=== PATIENT | female | born 1935 | race African-American/Black ===

== ENCOUNTER 2017-04-03 12:55 | Inpatient (IN) | payer MEDICARE, BC ==
[~2017-04-03] VITALS: Ht 170.2 cm; Wt 60.3 kg
[~2017-04-03 12:55] MED LIST: AMLO10TA4 PO; ATOR10TA PO; CALCIUM VIT D PO; CLOP75TA16 PO; DOXA4TAB2 PO; HYDR-4135 PO; INSU100C6 SQ; INSU3INS6 SQ; MIRT15TA PO; MULT-783 PO; VITA1CAP PO; [UNRECOGNIZED DRUG - CODE] PO
[2017-04-03 18:00] VITALS: BP 189/58
[2017-04-03 20:00] VITALS: BP 184/45
[2017-04-03 21:19] LABS: HEMATOCRIT. 30.9 % (36.0-48.0); HEMOGLOBIN. 10.1 g/dL (12.0-16.0); MEAN CORPUSCULAR HEMOGLOBIN 27.4 pg (28.0-32.0); MEAN CORPUSCULAR VOLUME 84.1 fL (81.0-99.0); MEAN PLATELET VOLUME 11.4 fl (7.4-10.4); RED BLOOD CELL COUNT 3.67 mill/uL (4.2-5.4); RED CELL DISTRIBUTION WIDTH 15.5 % (11.6-14.6)
[2017-04-03 21:28] LABS: PLATELET 31 x1000/uL (130-400)
[2017-04-03] MEDS ORDERED: DEXTROSE 50% WATER 50ML SYRINGE IV PRN ×2 (22:30→23:23)
[2017-04-03 23:10] LABS: PLATELET ESTIMATE MARKEDLY DECREASED
[2017-04-03] MEDS ORDERED: ACETAMINOPHEN 650MG/20.3ML UDC PO PRN (23:23)
[2017-04-03] MEDS ORDERED: DEXT 5%/0.45% NACL 1000ML 1,000 ML IV SCH (23:24)
[2017-04-03] MEDS: TEMAZEPAM 15MG CAPSULE PO PRN ×2 (23:33→23:34)
[2017-04-03] MEDS: MIRTAZAPINE 15MG TABLET PO SCH (23:34)
[2017-04-03] MEDS: CARVEDILOL 12.5MG TABLET PO SCH (23:34)
[2017-04-03] MEDS: ATORVASTATIN CALCIUM 10MG TABLET PO SCH (23:34)
[2017-04-03] MEDS: BLOOD SUGAR DIAGNOSTIC STRIP TEST SCH (23:38)
[2017-04-03] MEDS ORDERED: DEXT 5%/0.45% NACL 500ML 1,000 ML IV ONE (23:45)
[2017-04-03] MEDS: HYDRALAZINE HCL 50MG TABLET PO SCH (23:50)
[2017-04-04 00:52] LABS: CLARITY URINE CLEAR (CLEAR); COLOR URINE YELLOW (YELLOW); GLUCOSE URINE TRACE (NEGATIVE); KETONES URINE NEGATIVE (NEGATIVE); LEUKOCYTE ESTERASE URINE TRACE (NEGATIVE); NITRITE URINE NEGATIVE (NEGATIVE); OCCULT BLOOD URINE TRACE (NEGATIVE); PH URINE >=9.0 (4.5-8.0); PROTEIN URINE 2+ (NEGATIVE); SPECIFIC GRAVITY URINE 1.006 (1.005-1.030); UROBILINOGEN URINE 0.2 E.U./dL (0.2-1.0)
[2017-04-04 04:00] VITALS: BP 164/42
[2017-04-04] MEDS ORDERED: DEXT 5%/0.45% NACL 1000ML 1,000 ML IV SCH (05:15)
[2017-04-04] MEDS: BLOOD SUGAR DIAGNOSTIC STRIP TEST SCH ×4 (07:05→20:50)
[2017-04-04] MEDS: INSULIN LISPRO 100 UNITS/ML SUBCUT SCH ×4 (07:50→21:07)
[2017-04-04 08:00] VITALS: BP 188/54
[2017-04-04] MEDS: AMLODIPINE 10MG TABLET PO SCH (09:00)
[2017-04-04] MEDS: DOXAZOSIN MESYLATE 4MG TABLET PO SCH (09:00)
[2017-04-04] MEDS: CARVEDILOL 12.5MG TABLET PO SCH ×3 (09:00→23:58)
[2017-04-04] MEDS ORDERED: CLOPIDOGREL 75MG TABLET PO SCH (09:00)
[2017-04-04] MEDS: FOLIC ACID/VITAMIN B COMP W-C TABLET PO SCH (09:16)
[2017-04-04] MEDS: HYDRALAZINE HCL 50MG TABLET PO SCH (09:23)
[2017-04-04 12:00] VITALS: BP 197/59
[2017-04-04 16:02] VITALS: BP 194/54
[2017-04-04] MEDS: HYDRALAZINE HCL 25MG TABLET PO SCH (17:46)
[2017-04-04 20:00] VITALS: BP 110/53
[2017-04-04] MEDS: ATORVASTATIN CALCIUM 10MG TABLET PO SCH (20:49)
[2017-04-04] MEDS: ANASTROZOLE 1 MG TABLET PO SCH (20:49)
[2017-04-04] MEDS: TEMAZEPAM 15MG CAPSULE PO PRN (20:49)
[2017-04-04] MEDS: MIRTAZAPINE 15MG TABLET PO SCH (20:49)
[2017-04-05] VITALS (7 sets, daily range): BP systolic 148–202; BP diastolic 50–60
[2017-04-05 06:18] LABS: HEMATOCRIT. 33.9 % (36.0-48.0); HEMOGLOBIN. 10.9 g/dL (12.0-16.0); MEAN CORPUSCULAR HEMOGLOBIN 27.3 pg (28.0-32.0); MEAN CORPUSCULAR VOLUME 84.7 fL (81.0-99.0); RED CELL DISTRIBUTION WIDTH 15.7 % (11.6-14.6)
[2017-04-05 06:25] LABS: D-DIMER 1.02 mg/L FEU (<0.50); INR 1.3; PARTIAL THROMBOPLASTIN TIME 29.3 sec (23.4-31.0); PROTHROMBIN TIME 13.4 sec (9.4-11.6)
[2017-04-05 06:45] LABS: PLATELET 45 x1000/uL (130-400)
[2017-04-05] MEDS: BLOOD SUGAR DIAGNOSTIC STRIP TEST SCH ×4 (07:07→20:29)
[2017-04-05] MEDS: INSULIN LISPRO 100 UNITS/ML SUBCUT SCH ×4 (07:07→20:47)
[2017-04-05 08:02] LABS: VITAMIN B12 SERUM 1223 pg/mL (211-911)
[2017-04-05 08:31] LABS: FOLIC ACID (FOLATE) SERUM > 20.00 ng/mL (>5.38)
[2017-04-05] MEDS: DOXAZOSIN MESYLATE 4MG TABLET PO SCH (09:00)
[2017-04-05] MEDS: AMLODIPINE 10MG TABLET PO SCH (09:00)
[2017-04-05] MEDS: FOLIC ACID/VITAMIN B COMP W-C TABLET PO SCH (10:54)
[2017-04-05] MEDS: HYDRALAZINE HCL 25MG TABLET PO SCH ×2 (10:54→17:00)
[2017-04-05 11:26] LABS: PLATELET ESTIMATE DECREASED
[2017-04-05] MEDS: ATORVASTATIN CALCIUM 10MG TABLET PO SCH (20:30)
[2017-04-05] MEDS: ANASTROZOLE 1 MG TABLET PO SCH (20:30)
[2017-04-05] MEDS: CARVEDILOL 12.5MG TABLET PO SCH (20:30)
[2017-04-05] MEDS: MIRTAZAPINE 15MG TABLET PO SCH (20:31)
[2017-04-06] VITALS: BP 181/54
[2017-04-06 04:00] VITALS: BP 195/54
[2017-04-06 06:41] LABS: BASOPHILS % 0.7 % (0.0-2.0); EOSINOPHILS % 6.1 % (0.0-5.0); HEMATOCRIT. 29.7 % (36.0-48.0); HEMOGLOBIN. 9.7 g/dL (12.0-16.0); LYMPHOCYTES % 22.9 % (20.0-50.0); MEAN CORPUSCULAR HEMOGLOBIN 27.4 pg (28.0-32.0); MEAN PLATELET VOLUME 9.5 fl (7.4-10.4); MONOCYTES % 7.1 % (2.0-8.0); NEUTROPHILS % 63.2 % (40.0-76.0); RED BLOOD CELL COUNT 3.54 mill/uL (4.2-5.4); RED CELL DISTRIBUTION WIDTH 15.5 % (11.6-14.6)
[2017-04-06 06:53] LABS: CARBON DIOXIDE 26 mEq/L (21-32); CHLORIDE 99 mEq/L (98-107)
[2017-04-06] MEDS: BLOOD SUGAR DIAGNOSTIC STRIP TEST SCH ×4 (07:12→21:00)
[2017-04-06] MEDS: INSULIN LISPRO 100 UNITS/ML SUBCUT SCH ×4 (07:12→21:00)
[2017-04-06 08:00] VITALS: BP 136/42
[2017-04-06] MEDS: CARVEDILOL 12.5MG TABLET PO SCH ×2 (09:00→22:43)
[2017-04-06] MEDS: HYDRALAZINE HCL 25MG TABLET PO SCH (09:00)
[2017-04-06] MEDS: DOXAZOSIN MESYLATE 4MG TABLET PO SCH ×2 (09:00→12:30)
[2017-04-06] MEDS: AMLODIPINE 10MG TABLET PO SCH ×2 (09:00→12:30)
[2017-04-06 09:14] LABS: PLATELET 46 x1000/uL (130-400)
[2017-04-06] MEDS: FOLIC ACID/VITAMIN B COMP W-C TABLET PO SCH (09:43)
[2017-04-06 12:00] VITALS: BP 130/55
[2017-04-06] MEDS: LOSARTAN POTASSIUM 100 MG TABLET PO SCH (12:29)
[2017-04-06 16:00] VITALS: BP 147/45
[2017-04-06] MEDS: VANCOMYCIN HCL 1000 MG/20 ML ORAL PO SCH (18:18)
[2017-04-06 20:00] VITALS: BP 186/54
[2017-04-06] MEDS ORDERED: TEMAZEPAM 15MG CAPSULE PO PRN (21:00)
[2017-04-06] MEDS: ANASTROZOLE 1 MG TABLET PO SCH (22:42)
[2017-04-06] MEDS: ATORVASTATIN CALCIUM 10MG TABLET PO SCH (22:42)
[2017-04-07] VITALS: BP 175/65
[2017-04-07] MEDS: VANCOMYCIN HCL 1000 MG/20 ML ORAL PO SCH ×3 (00:43→12:17)
[2017-04-07 04:00] VITALS: BP 168/59
[2017-04-07] MEDS: BLOOD SUGAR DIAGNOSTIC STRIP TEST SCH ×3 (06:54→17:20)
[2017-04-07] MEDS: INSULIN LISPRO 100 UNITS/ML SUBCUT SCH ×3 (07:24→18:37)
[2017-04-07 08:00] VITALS: BP 134/49
[2017-04-07] MEDS: DOXAZOSIN MESYLATE 4MG TABLET PO SCH (09:00)
[2017-04-07] MEDS: CARVEDILOL 12.5MG TABLET PO SCH (09:00)
[2017-04-07] MEDS: AMLODIPINE 10MG TABLET PO SCH (09:00)
[2017-04-07] MEDS: LOSARTAN POTASSIUM 100 MG TABLET PO SCH (09:11)
[2017-04-07] MEDS: FOLIC ACID/VITAMIN B COMP W-C TABLET PO SCH (09:11)
[2017-04-07 09:36] VITALS: BP_SYST 134; BP_SYST 168; BP_DIAS 49; BP_DIAS 51
[2017-04-07 12:00] VITALS: BP 139/46
[2017-04-07 15:27] LABS: HEMATOCRIT 29.7 % (36.0-48.0); HEMOGLOBIN 9.8 g/dL (12.0-16.0); MEAN CORPUSCULAR HEMOGLOBIN 27.7 pg (28.0-32.0); MEAN CORPUSCULAR VOLUME 83.7 fL (81.0-99.0); RED BLOOD CELL COUNT 3.55 mill/uL (4.2-5.4); RED CELL DISTRIBUTION WIDTH 15.3 % (11.6-14.6)
[2017-04-07 15:52] LABS: PLATELET 35 x1000/uL (130-400)
[2017-04-07 16:00] VITALS: BP 122/33
[2017-04-07] MEDS ORDERED: CLONIDINE 0.1MG TABLET PO NR (16:47)
[2017-04-08 09:07] LABS: HLA CLASS 1 ANTIBODY Negative (Negative); IIb/IIIa ANTIBODY Negative (Negative); Ia/IIa ANTIBODY Negative (Negative); Ib/IX ANTIBODY Negative (Negative)
== END 2017-04-07 18:55 | disposition home or self-care (01) | DRG 813 ==
LOC: 6EST 12:55
PROVIDERS: ADMIT Internal Medicine Nephrology; ATTEND Internal Medicine Nephrology
PROC: 5A1D00Z (ICD-10-PCS; principal; 2017-04-06)
DX: D75.82 Heparin induced thrombocytopenia (HIT) (principal); A04.7 Enterocolitis due to Clostridium difficile; E46 Unspecified protein-calorie malnutrition; N18.6 End stage renal disease; I12.0 Hypertensive chronic kidney disease with stage 5 chronic kidney disease or end stage renal disease; E11.22 Type 2 diabetes mellitus with diabetic chronic kidney disease; E86.0 Dehydration; D63.8 Anemia in other chronic diseases classified elsewhere; C50.919 Malignant neoplasm of unspecified site of unspecified female breast; G47.00 Insomnia, unspecified; Z99.2 Dependence on renal dialysis; Z79.811 Long term (current) use of aromatase inhibitors; Z92.3 Personal history of irradiation; Z88.0 Allergy status to penicillin; Z68.20 Body mass index [BMI] 20.0-20.9, adult
CPT/HCPCS: 36415; 70450; 71010; 80048; 80053; 81001; 82607; 82746; 82962; 83036; 85007; 85025; 85027; 85049; 85362; 85379; 85384; 85610; 85730; 86022; 87040; 87086; 87493; 93005; J1815; J3370; J3490; J7030

== ENCOUNTER 2017-04-11 12:54 | Inpatient (IN) | payer MEDICARE, BC, MEDICAID ==
[~2017-04-11] VITALS: Ht 170.2 cm; Wt 56.7 kg
[~2017-04-11 12:54] MED LIST changes: -CLOP75TA16 PO; -HYDR-4135 PO
[2017-04-11] MEDS ORDERED: SODIUM CHLORIDE 0.9% 500 ML IV ONE (13:19)
[2017-04-11 13:55] LABS: BG BASE EXCESS 2.1 mmol/L (-2.0-2.0); BG CARBOXYHEMOGLOBIN 0.7 % (0.5-1.5); BG DEOXYHEMOGLOBIN 7.6 % (0.0-5.0); BG FRACTION INSPIRED OXYGEN 34; BG HCO3 ACT 29.5 mmol/L (22.0-26.0); BG METHEMOGLOBIN 0.1 % (0.0-1.5); BG OXYGEN SATURATION 92.3 % (92.0-98.5); BG OXYHEMOGLOBIN 91.6 % (94.0-97.0); BG PCO2 61.6 mmHg (35.0-45.0); BG PH 7.298 (7.350-7.450); BG PO2 70.1 mmHg (75.0-100.0); BG SAMPLE SITE RIGHT BRACHIAL; BG TOTAL HEMOGLOBIN 10.1 g/dL (12.0-18.0); BG VENT MODE NASAL CANNULA
[2017-04-11 13:58] LABS: HEMATOCRIT. 29.2 % (36.0-48.0); HEMOGLOBIN. 9.3 g/dL (12.0-16.0); MEAN CORPUSCULAR HEMOGLOBIN 26.9 pg (28.0-32.0); MEAN CORPUSCULAR VOLUME 84.5 fL (81.0-99.0); MEAN PLATELET VOLUME 9.2 fl (7.4-10.4); RED BLOOD CELL COUNT 3.46 mill/uL (4.2-5.4); RED CELL DISTRIBUTION WIDTH 15.7 % (11.6-14.6)
[2017-04-11 14:05] LABS: INR 1.3
[2017-04-11 14:06] LABS: PLATELET 42 x1000/uL (130-400)
[2017-04-11 14:13] LABS: CARBON DIOXIDE 31 mEq/L (21-32); CHLORIDE 98 mEq/L (98-107)
[2017-04-11 14:22] LABS: PLATELET ESTIMATE MARKEDLY DECREASED
[2017-04-11] MEDS ORDERED: FUROSEMIDE 40MG/4ML VIAL IVP ONE (15:00)
[2017-04-11] MEDS ORDERED: ENALAPRIL 2.5MG/2ML VIAL 2ML IV ONE (15:30)
[2017-04-11 16:45] LABS: BG CARBOXYHEMOGLOBIN 0.9 % (0.5-1.5); BG DEOXYHEMOGLOBIN 2.9 % (0.0-5.0); BG FRACTION INSPIRED OXYGEN 40; BG HCO3 ACT 28.7 mmol/L (22.0-26.0); BG METHEMOGLOBIN 0.2 % (0.0-1.5); BG OXYGEN SATURATION 97.1 % (92.0-98.5); BG PCO2 49.2 mmHg (35.0-45.0); BG PH 7.384 (7.350-7.450); BG PO2 95.9 mmHg (75.0-100.0); BG PRESSURE SUPPORT 7; BG SAMPLE SITE RIGHT BRACHIAL; BG TOTAL HEMOGLOBIN 10.3 g/dL (12.0-18.0); BG VENT MODE MASK - BIPAP; BG VENT RATE 16 set
[2017-04-11] MEDS ORDERED: ASPIRIN 325MG EC TABLET PO ONE (17:15)
[2017-04-11] MEDS ORDERED: ENOXAPARIN 60MG/0.6ML SYR SUBCUT ONE (17:30)
[2017-04-11 18:50] VITALS: BP 174/85
[2017-04-11 19:15] VITALS: BP 174/85
[2017-04-11] MEDS ORDERED: ARIM1 PO (20:55)
[2017-04-11] MEDS ORDERED: TEMA15CA5 PO (20:55)
[2017-04-11] MEDS ORDERED: LOSA100T14 PO (20:55)
[2017-04-11] MEDS ORDERED: CARV40CP PO (20:55)
[2017-04-11] MEDS ORDERED: CLONIDINE 0.1MG TABLET PO PRN (21:15)
[2017-04-11] MEDS ORDERED: ONDANSETRON HCL 4MG/2ML VIAL IV PRN (21:15)
[2017-04-11] MEDS ORDERED: MAGNESIUM/ALUMINUM HYDROXIDE/SIMETHICONE 30ML UDC PO PRN (21:15)
[2017-04-11] MEDS ORDERED: DIPHENHYDRAMINE 50MG/ML VIAL IV PRN (21:15)
[2017-04-11] MEDS ORDERED: DEXTROSE 50% WATER 50ML SYRINGE IV PRN (21:15)
[2017-04-11] MEDS: SODIUM CHLORIDE 0.9% INJ 3ML FLUSH IVF SCH (21:43)
[2017-04-11 22:00] VITALS: BP 175/80
[2017-04-11] MEDS: VANCOMYCIN HCL 1000 MG/20 ML ORAL PO SCH (23:51)
[2017-04-12] VITALS (12 sets, daily range): BP systolic 135–175; BP diastolic 58–80
[2017-04-12] MEDS: SODIUM CHLORIDE 0.9% INJ 3ML FLUSH IVF SCH ×3 (05:42→21:27)
[2017-04-12] MEDS: VANCOMYCIN HCL 1000 MG/20 ML ORAL PO SCH ×4 (05:47→23:22)
[2017-04-12] MEDS ORDERED: VANCOMYCIN HCL 1 GM/VIAL PO SCH (06:00)
[2017-04-12] MEDS: BLOOD SUGAR DIAGNOSTIC STRIP TEST SCH ×4 (07:30→21:00)
[2017-04-12] MEDS: INSULIN LISPRO 100 UNITS/ML SUBCUT SCH ×4 (08:00→21:00)
[2017-04-12] MEDS: DOXAZOSIN MESYLATE 4MG TABLET PO SCH (08:30)
[2017-04-12] MEDS: AMLODIPINE 10MG TABLET PO SCH (08:30)
[2017-04-12] MEDS: LOSARTAN POTASSIUM 100 MG TABLET PO SCH (08:30)
[2017-04-12] MEDS: ANASTROZOLE 1 MG TABLET PO SCH (11:09)
[2017-04-12] MEDS: ATORVASTATIN CALCIUM 10MG TABLET PO SCH (21:29)
[2017-04-12] MEDS ORDERED: TEMA15CA5 PO (21:33)
[2017-04-12] MEDS ORDERED: TEMAZEPAM 15MG CAPSULE PO PRN (22:38)
[2017-04-12] MEDS: ACETAMINOPHEN 325MG TABLET PO PRN (23:26)
[2017-04-13] VITALS (13 sets, daily range): BP systolic 125–157; BP diastolic 45–77
[2017-04-13] MEDS: SODIUM CHLORIDE 0.9% INJ 3ML FLUSH IVF SCH ×3 (06:04→21:45)
[2017-04-13] MEDS: VANCOMYCIN HCL 1000 MG/20 ML ORAL PO SCH ×3 (06:04→18:15)
[2017-04-13 06:59] LABS: HEMATOCRIT. 23.7 % (36.0-48.0); HEMOGLOBIN. 7.8 g/dL (12.0-16.0); MEAN CORPUSCULAR HEMOGLOBIN 27.4 pg (28.0-32.0); MEAN CORPUSCULAR VOLUME 83.3 fL (81.0-99.0); MEAN PLATELET VOLUME 9.4 fl (7.4-10.4); PLATELET 63 x1000/uL (130-400); RED BLOOD CELL COUNT 2.85 mill/uL (4.2-5.4); RED CELL DISTRIBUTION WIDTH 15.6 % (11.6-14.6)
[2017-04-13] MEDS: BLOOD SUGAR DIAGNOSTIC STRIP TEST SCH ×4 (07:30→21:45)
[2017-04-13] MEDS: INSULIN LISPRO 100 UNITS/ML SUBCUT SCH ×4 (07:47→21:54)
[2017-04-13] MEDS: DOXAZOSIN MESYLATE 4MG TABLET PO SCH (09:00)
[2017-04-13] MEDS: AMLODIPINE 10MG TABLET PO SCH (09:00)
[2017-04-13] MEDS: LOSARTAN POTASSIUM 100 MG TABLET PO SCH (09:00)
[2017-04-13] MEDS: ANASTROZOLE 1 MG TABLET PO SCH (11:21)
[2017-04-13 12:54] LABS: PLATELET ESTIMATE DECREASED
[2017-04-13] MEDS ORDERED: IPRATROPIUM/ALBUTEROL 0.5-3(2.5)MG/3ML NEB HHN PRN (15:15)
[2017-04-13] MEDS ORDERED: TEMAZEPAM 15MG CAPSULE PO SCH (17:00)
[2017-04-13] MEDS: METOPROLOL TARTRATE 25MG TABLET PO SCH (21:45)
[2017-04-13] MEDS: ATORVASTATIN CALCIUM 10MG TABLET PO SCH (21:45)
[2017-04-13] MEDS: TEMAZEPAM 15MG CAPSULE PO PRN (21:55)
[2017-04-14] VITALS (46 sets, daily range): BP systolic 107–161; BP diastolic 34–67
[2017-04-14] MEDS: VANCOMYCIN HCL 1000 MG/20 ML ORAL PO SCH ×4 (00:35→17:48)
[2017-04-14 06:33] LABS: BASOPHILS % 0.6 % (0.0-2.0); EOSINOPHILS % 4.2 % (0.0-5.0); HEMATOCRIT. 23.2 % (36.0-48.0); HEMOGLOBIN. 7.5 g/dL (12.0-16.0); LYMPHOCYTES % 14.1 % (20.0-50.0); MEAN CORPUSCULAR HEMOGLOBIN 27.6 pg (28.0-32.0); MEAN CORPUSCULAR VOLUME 84.9 fL (81.0-99.0); MEAN PLATELET VOLUME 9.3 fl (7.4-10.4); MONOCYTES % 9.7 % (2.0-8.0); NEUTROPHILS % 71.4 % (40.0-76.0); PARTIAL THROMBOPLASTIN TIME 30.6 sec (23.4-31.0); PLATELET 71 x1000/uL (130-400); RED BLOOD CELL COUNT 2.73 mill/uL (4.2-5.4); RED CELL DISTRIBUTION WIDTH 16.4 % (11.6-14.6)
[2017-04-14] MEDS: SODIUM CHLORIDE 0.9% INJ 3ML FLUSH IVF SCH ×3 (06:51→21:20)
[2017-04-14] MEDS: INSULIN LISPRO 100 UNITS/ML SUBCUT SCH ×4 (08:00→21:12)
[2017-04-14] MEDS: BLOOD SUGAR DIAGNOSTIC STRIP TEST SCH ×4 (08:01→21:12)
[2017-04-14] MEDS: METOPROLOL TARTRATE 25MG TABLET PO SCH ×2 (09:18→20:58)
[2017-04-14] MEDS: AMLODIPINE 10MG TABLET PO SCH (09:18)
[2017-04-14] MEDS: DOXAZOSIN MESYLATE 4MG TABLET PO SCH (09:18)
[2017-04-14] MEDS: LOSARTAN POTASSIUM 100 MG TABLET PO SCH (09:18)
[2017-04-14] MEDS: ANASTROZOLE 1 MG TABLET PO SCH (09:24)
[2017-04-14 10:30] LABS: PHOSPHORUS 3.1 mg/dL (2.5-4.9)
[2017-04-14] MEDS: ATORVASTATIN CALCIUM 10MG TABLET PO SCH (20:57)
[2017-04-14] MEDS: TEMAZEPAM 15MG CAPSULE PO PRN (20:57)
[2017-04-14] MEDS: ACETAMINOPHEN 325MG TABLET PO PRN (20:57)
[2017-04-15] VITALS (51 sets, daily range): BP systolic 114–171; BP diastolic 43–72
[2017-04-15] MEDS: VANCOMYCIN HCL 1000 MG/20 ML ORAL PO SCH ×5 (02:45→23:25)
[2017-04-15] MEDS: SODIUM CHLORIDE 0.9% INJ 3ML FLUSH IVF SCH ×3 (06:47→21:55)
[2017-04-15 07:17] LABS: BASOPHILS % 0.7 % (0.0-2.0); EOSINOPHILS % 7.4 % (0.0-5.0); HEMATOCRIT. 23.9 % (36.0-48.0); HEMOGLOBIN. 7.8 g/dL (12.0-16.0); MEAN CORPUSCULAR HEMOGLOBIN 27.8 pg (28.0-32.0); MEAN CORPUSCULAR VOLUME 84.7 fL (81.0-99.0); MEAN PLATELET VOLUME 9.5 fl (7.4-10.4); MONOCYTES % 6.7 % (2.0-8.0); NEUTROPHILS % 64.2 % (40.0-76.0); PLATELET 69 x1000/uL (130-400); RED BLOOD CELL COUNT 2.82 mill/uL (4.2-5.4); RED CELL DISTRIBUTION WIDTH 15.6 % (11.6-14.6)
[2017-04-15] MEDS: BLOOD SUGAR DIAGNOSTIC STRIP TEST SCH ×4 (07:30→21:57)
[2017-04-15] MEDS: INSULIN LISPRO 100 UNITS/ML SUBCUT SCH ×4 (08:00→21:56)
[2017-04-15] MEDS: DOXAZOSIN MESYLATE 4MG TABLET PO SCH ×3 (09:00→09:43)
[2017-04-15] MEDS: AMLODIPINE 10MG TABLET PO SCH ×3 (09:00→09:46)
[2017-04-15] MEDS: LOSARTAN POTASSIUM 100 MG TABLET PO SCH ×3 (09:00→09:45)
[2017-04-15] MEDS: METOPROLOL TARTRATE 25MG TABLET PO SCH ×3 (09:00→20:32)
[2017-04-15 09:08] LABS: IMMUNOGLOBULIN A 165 mg/dL (64-422); IMMUNOGLOBULIN G 929 mg/dL (700-1600); IMMUNOGLOBULIN M 49 mg/dL (26-217)
[2017-04-15] MEDS: ANASTROZOLE 1 MG TABLET PO SCH (09:32)
[2017-04-15 17:12] LABS: ANTI-NUCLEAR ANTIBODIES DIRECT Negative (Negative)
[2017-04-15] MEDS: TEMAZEPAM 15MG CAPSULE PO PRN (20:32)
[2017-04-15] MEDS: ATORVASTATIN CALCIUM 10MG TABLET PO SCH (20:32)
[2017-04-15] MEDS ORDERED: EPOETIN ALFA 10000UNITS/ML VIAL SUBCUT SCH (21:00)
[2017-04-16] VITALS (18 sets, daily range): BP systolic 121–176; BP diastolic 43–65
[2017-04-16] MEDS: VANCOMYCIN HCL 1000 MG/20 ML ORAL PO SCH ×2 (05:48→12:46)
[2017-04-16] MEDS: SODIUM CHLORIDE 0.9% INJ 3ML FLUSH IVF SCH ×2 (05:48→14:54)
[2017-04-16] MEDS: INSULIN LISPRO 100 UNITS/ML SUBCUT SCH ×2 (08:00→12:56)
[2017-04-16] MEDS: LOSARTAN POTASSIUM 100 MG TABLET PO SCH (08:23)
[2017-04-16] MEDS: ANASTROZOLE 1 MG TABLET PO SCH (08:24)
[2017-04-16] MEDS: METOPROLOL TARTRATE 25MG TABLET PO SCH (08:24)
[2017-04-16] MEDS: AMLODIPINE 10MG TABLET PO SCH (08:24)
[2017-04-16] MEDS: BLOOD SUGAR DIAGNOSTIC STRIP TEST SCH ×2 (08:25→12:46)
[2017-04-16] MEDS ORDERED: FOLIC ACID/VITAMIN B COMP W-C TABLET PO SCH (09:00)
[2017-04-17 13:12] LABS: METHYLMALONIC ACID 625 nmol/L (0-378)
== END 2017-04-16 15:55 | disposition home or self-care (01) | DRG 280 ==
LOC: ER 13:07 → EDBEDREQTM 16:29 → EDBEDREQ 16:29 → ENRESERV 16:55 → 5EST 17:22 → EDBEDREQTM 17:23 → EDBEDREQ 17:23
PROVIDERS: ADMIT Internal Medicine; ATTEND Internal Medicine
PROC: 5A1D60Z (ICD-10-PCS; principal; 2017-04-13)
PROC: 30233N1 Transfusion of Nonautologous Red Blood Cells into Peripheral Vein, Percutaneous Approach (ICD-10-PCS; 2017-04-15)
DX: I21.4 Non-ST elevation (NSTEMI) myocardial infarction (principal); I50.23 Acute on chronic systolic (congestive) heart failure; J96.02 Acute respiratory failure with hypercapnia; E43 Unspecified severe protein-calorie malnutrition; D61.818 Other pancytopenia; N18.6 End stage renal disease; I42.9 Cardiomyopathy, unspecified; E87.2 Acidosis; I13.2 Hypertensive heart and chronic kidney disease with heart failure and with stage 5 chronic kidney disease, or end stage renal disease; Z68.1 Body mass index [BMI] 19.9 or less, adult; D69.6 Thrombocytopenia, unspecified; E11.22 Type 2 diabetes mellitus with diabetic chronic kidney disease; D63.1 Anemia in chronic kidney disease; F41.9 Anxiety disorder, unspecified; J44.9 Chronic obstructive pulmonary disease, unspecified; I27.2 Other secondary pulmonary hypertension; M81.0 Age-related osteoporosis without current pathological fracture; Z99.2 Dependence on renal dialysis; Z79.4 Long term (current) use of insulin; Z85.3 Personal history of malignant neoplasm of breast; Z79.899 Other long term (current) drug therapy
CPT/HCPCS: 36415; 36600; 71010; 78580; 80048; 80053; 80061; 82375; 82784; 82805; 82962; 83010; 83036; 83735; 83880; 83921; 84100; 84484; 85025; 85049; 85384; 85610; 85730; 86038; 86334; 86803; 86850; 86900; 86920; 93005; 93306; 93970; 94660; 96361; 96372; 96374; 96375; 97110; 97116; 97162; 99285; A6261; J0885; J1650; J1815; J1940; J3370; J3490; J7030; J7050; P9016

== ENCOUNTER 2018-03-08 10:09 | Emergency (ER) | payer MEDICARE, BC, MEDICAID ==
[~2018-03-08] VITALS: Ht 170.2 cm; Wt 62.0 kg
[~2018-03-08 10:09] MED LIST changes: +ANAS1TAB49 PO; +CARV40CP PO; +LOSA100T14 PO; +METH500T22 PO; +TEMA15CA5 PO; -[UNRECOGNIZED DRUG - CODE] PO
[2018-03-08 11:34] LABS: BASOPHILS % 0.8 % (0.0-2.0); EOSINOPHILS % 3.6 % (0.0-5.0); HEMOGLOBIN. 11.4 g/dL (12.0-16.0); LYMPHOCYTES % 14.2 % (20.0-50.0); MEAN CORPUSCULAR VOLUME 88.7 fL (81.0-99.0); MEAN PLATELET VOLUME 9.2 fl (7.4-10.4); MONOCYTES % 5.6 % (2.0-8.0); NEUTROPHILS % 75.8 % (40.0-76.0); PLATELET 51 x1000/uL (130-400); RED BLOOD CELL COUNT 3.95 mill/uL (4.2-5.4); RED CELL DISTRIBUTION WIDTH 14.7 % (11.6-14.6)
[2018-03-08 11:39] LABS: INR 1.2; PROTHROMBIN TIME 12.1 sec (9.4-11.6)
[2018-03-08 11:42] LABS: CHLORIDE 93 mEq/L (98-107)
[2018-03-08 14:11] LABS: CLARITY URINE CLEAR (CLEAR); COLOR URINE YELLOW (YELLOW); KETONES URINE NEGATIVE (NEGATIVE); LEUKOCYTE ESTERASE URINE NEGATIVE (NEGATIVE); NITRITE URINE NEGATIVE (NEGATIVE); OCCULT BLOOD URINE 1+ (NEGATIVE); PROTEIN URINE 2+ (NEGATIVE); SPECIFIC GRAVITY URINE 1.006 (1.005-1.030); UROBILINOGEN URINE 0.2 E.U./dL (0.2-1.0)
[2018-03-08 15:59] VITALS: BP 170/64
== END 2018-03-08 16:00 | disposition home or self-care (01) ==
LOC: ER 10:09 → CANBEDREQ 16:35
DX: R53.1 Weakness (principal); I13.2 Hypertensive heart and chronic kidney disease with heart failure and with stage 5 chronic kidney disease, or end stage renal disease; E87.1 Hypo-osmolality and hyponatremia; E11.22 Type 2 diabetes mellitus with diabetic chronic kidney disease; N18.6 End stage renal disease; I44.0 Atrioventricular block, first degree; D75.9 Disease of blood and blood-forming organs, unspecified; D63.1 Anemia in chronic kidney disease; I50.9 Heart failure, unspecified; Z99.2 Dependence on renal dialysis; Z88.0 Allergy status to penicillin; Z90.10 Acquired absence of unspecified breast and nipple; Z79.4 Long term (current) use of insulin
CPT/HCPCS: 36415; 70450; 71045; 80053; 81003; 83605; 84145; 84484; 85025; 85610; 87040; 87086; 93005; 99285

== ENCOUNTER 2018-04-21 10:29 | Inpatient (IN) | payer MEDICARE, BC, MEDICAID ==
[~2018-04-21] VITALS: Ht 162.6 cm; Wt 54.4 kg
[2018-04-21] MEDS ORDERED: AMLODIPINE 5MG TABLET PO ONE (11:15)
[2018-04-21] MEDS ORDERED: ACETAMINOPHEN 325MG TABLET PO ONE (11:15)
[2018-04-21 12:07] LABS: CHLORIDE 98 mEq/L (98-107)
[2018-04-21 12:13] LABS: INR 1.3; PROTHROMBIN TIME 12.8 sec (9.1-11.1)
[2018-04-21 12:22] LABS: BASOPHILS % 1.1 % (0.0-2.0); EOSINOPHILS % 2.1 % (0.0-5.0); HEMATOCRIT. 33.2 % (36.0-48.0); HEMOGLOBIN. 11.1 g/dL (12.0-16.0); LYMPHOCYTES % 16.5 % (20.0-50.0); MEAN CORPUSCULAR HEMOGLOBIN 30.2 pg (28.0-32.0); MEAN CORPUSCULAR VOLUME 90.1 fL (81.0-99.0); MEAN PLATELET VOLUME 8.7 fl (7.4-10.4); MONOCYTES % 7.5 % (2.0-8.0); NEUTROPHILS % 72.8 % (40.0-76.0); PLATELET 57 x1000/uL (130-400); RED BLOOD CELL COUNT 3.69 mill/uL (4.2-5.4); RED CELL DISTRIBUTION WIDTH 16.8 % (11.6-14.6)
[2018-04-21] MEDS ORDERED: ASPIRIN 325MG EC TABLET PO ONE (13:45)
[2018-04-21] MEDS ORDERED: CLONIDINE 0.2MG TABLET PO ONE (15:00)
[2018-04-21] MEDS ORDERED: VIT1TABL5 MT (18:49)
[2018-04-21] MEDS ORDERED: CALC-900 MT (18:49)
[2018-04-21] MEDS ORDERED: FISH MT (18:49)
[2018-04-21 19:00] VITALS: BP 194/62
[2018-04-21] MEDS ORDERED: CLONIDINE 0.1MG TABLET PO PRN (19:45)
[2018-04-21] MEDS ORDERED: ONDANSETRON HCL 4MG/2ML INJ IV PRN (19:45)
[2018-04-21] MEDS ORDERED: MAGNESIUM/ALUMINUM HYDROXIDE/SIMETHICONE 30ML UDC PO PRN (19:45)
[2018-04-21] MEDS ORDERED: IPRATROPIUM/ALBUTEROL 0.5-3(2.5)MG/3ML NEB INH PRN (19:45)
[2018-04-21] MEDS ORDERED: DIPHENHYDRAMINE 50MG/ML VIAL IV PRN (19:45)
[2018-04-21] MEDS ORDERED: LORAZEPAM 0.5MG TABLET PO PRN (19:45)
[2018-04-21 20:00] VITALS: BP 205/78
[2018-04-21] MEDS ORDERED: DEXTROSE 50% WATER 50ML SYRINGE IV PRN (20:00)
[2018-04-21] MEDS: DOXAZOSIN MESYLATE 4MG TABLET PO SCH (21:00)
[2018-04-21] MEDS ORDERED: INSULIN LISPRO 100 UNITS/ML SUBCUT SCH (21:00)
[2018-04-21] MEDS: INSULIN LISPRO 100 UNITS/ML SUBCUT SCH (21:00)
[2018-04-21] MEDS ORDERED: CARVEDILOL 6.25 MG TABLET PO SCH (21:00)
[2018-04-21] MEDS: GABAPENTIN 100MG CAPSULE PO SCH (21:01)
[2018-04-21] MEDS: ATORVASTATIN CALCIUM 10MG TABLET PO SCH (21:01)
[2018-04-21] MEDS: BLOOD SUGAR DIAGNOSTIC STRIP TEST SCH (21:01)
[2018-04-21] MEDS: CARVEDILOL 3.125 MG TABLET PO SCH (21:01)
[2018-04-21] MEDS: SODIUM CHLORIDE 0.9% INJ 3ML FLUSH IVF SCH (21:37)
[2018-04-21] MEDS ORDERED: INSULIN GLARGINE UD 100 UNITS/ML SYR SUBCUT SCH (22:00)
[2018-04-21] MEDS: HYDRALAZINE 20MG/ML VIAL IV PRN (23:19)
[2018-04-21] MEDS: ACETAMINOPHEN 325MG TABLET PO PRN (23:19)
[2018-04-22] VITALS (8 sets, daily range): BP systolic 140–187; BP diastolic 33–63
[2018-04-22] MEDS: SODIUM CHLORIDE 0.9% INJ 3ML FLUSH IVF SCH ×3 (05:54→21:32)
[2018-04-22] MEDS: GABAPENTIN 100MG CAPSULE PO SCH ×3 (06:29→21:08)
[2018-04-22] MEDS: HYDRALAZINE 20MG/ML VIAL IV PRN ×2 (06:30→13:43)
[2018-04-22] MEDS: INSULIN LISPRO 100 UNITS/ML SUBCUT SCH ×4 (06:35→21:00)
[2018-04-22] MEDS: BLOOD SUGAR DIAGNOSTIC STRIP TEST SCH ×4 (06:35→21:06)
[2018-04-22] MEDS: ANASTROZOLE 1 MG TABLET PO SCH (09:49)
[2018-04-22] MEDS: FISH OIL/OMEGA-3 FATTY ACIDS 1000MG CAPSULE PO SCH (09:49)
[2018-04-22] MEDS: AMLODIPINE 10MG TABLET PO SCH (10:45)
[2018-04-22] MEDS: CARVEDILOL 3.125 MG TABLET PO SCH ×2 (10:45→21:08)
[2018-04-22] MEDS: ACETAMINOPHEN 325MG TABLET PO PRN (14:26)
[2018-04-22] MEDS: MORPHINE SULFATE 4 MG/ML CPJ (NOT FOR IM USE) IV PRN ×2 (15:22→21:32)
[2018-04-22] MEDS: ATORVASTATIN CALCIUM 10MG TABLET PO SCH (21:08)
[2018-04-22] MEDS: DOXAZOSIN MESYLATE 4MG TABLET PO SCH (21:09)
[2018-04-23] MEDS: MORPHINE SULFATE 4 MG/ML CPJ (NOT FOR IM USE) IV PRN ×3 (03:40→22:46)
[2018-04-23 04:00] VITALS: BP 172/45
[2018-04-23] MEDS: GABAPENTIN 100MG CAPSULE PO SCH ×2 (06:34→13:48)
[2018-04-23] MEDS: INSULIN LISPRO 100 UNITS/ML SUBCUT SCH ×4 (06:34→21:00)
[2018-04-23] MEDS: SODIUM CHLORIDE 0.9% INJ 3ML FLUSH IVF SCH ×3 (06:34→22:46)
[2018-04-23] MEDS: BLOOD SUGAR DIAGNOSTIC STRIP TEST SCH ×4 (06:34→21:00)
[2018-04-23] MEDS: HYDRALAZINE 20MG/ML VIAL IV PRN ×2 (06:57→16:55)
[2018-04-23 08:00] VITALS: BP 153/42
[2018-04-23] MEDS: AMLODIPINE 10MG TABLET PO SCH (08:46)
[2018-04-23] MEDS: CARVEDILOL 3.125 MG TABLET PO SCH ×2 (08:46→22:43)
[2018-04-23] MEDS: ANASTROZOLE 1 MG TABLET PO SCH (08:56)
[2018-04-23] MEDS: FISH OIL/OMEGA-3 FATTY ACIDS 1000MG CAPSULE PO SCH (08:56)
[2018-04-23 12:00] VITALS: BP 175/70
[2018-04-23 16:00] VITALS: BP 175/51
[2018-04-23 20:00] VITALS: BP 147/45
[2018-04-23] MEDS: ATORVASTATIN CALCIUM 10MG TABLET PO SCH (21:00)
[2018-04-23] MEDS ORDERED: GABAPENTIN 100MG CAPSULE PO SCH (22:00)
[2018-04-23] MEDS: DOXAZOSIN MESYLATE 4MG TABLET PO SCH (22:44)
[2018-04-24] VITALS: BP 164/56
[2018-04-24 04:00] VITALS: BP 175/54
[2018-04-24] MEDS: BLOOD SUGAR DIAGNOSTIC STRIP TEST SCH ×4 (06:42→21:50)
[2018-04-24] MEDS: INSULIN LISPRO 100 UNITS/ML SUBCUT SCH ×4 (06:42→21:50)
[2018-04-24] MEDS: SODIUM CHLORIDE 0.9% INJ 3ML FLUSH IVF SCH ×3 (06:42→21:38)
[2018-04-24 07:34] LABS: VITAMIN B12 SERUM > 2000.0 pg/mL (211-911)
[2018-04-24 08:00] VITALS: BP 172/54
[2018-04-24] MEDS: CARVEDILOL 3.125 MG TABLET PO SCH ×3 (09:00→21:00)
[2018-04-24] MEDS: FISH OIL/OMEGA-3 FATTY ACIDS 1000MG CAPSULE PO SCH (09:19)
[2018-04-24] MEDS: AMLODIPINE 10MG TABLET PO SCH (09:19)
[2018-04-24] MEDS: ANASTROZOLE 1 MG TABLET PO SCH (09:20)
[2018-04-24 12:00] VITALS: BP 183/60
[2018-04-24 16:00] VITALS: BP 175/51
[2018-04-24] MEDS: MORPHINE SULFATE 4 MG/ML CPJ (NOT FOR IM USE) IV PRN (18:10)
[2018-04-24] MEDS: HYDRALAZINE 20MG/ML VIAL IV PRN (18:11)
[2018-04-24 20:00] VITALS: BP 126/42
[2018-04-24] MEDS ORDERED: HYDROCODONE/ACETAMINOPHEN 5/325MG TABLET PO PRN (20:15)
[2018-04-24] MEDS ORDERED: NORTRIPTYLINE HCL 25MG CAPSULE PO SCH (21:00)
[2018-04-24] MEDS: DOXAZOSIN MESYLATE 4MG TABLET PO SCH (21:31)
[2018-04-24] MEDS: ATORVASTATIN CALCIUM 10MG TABLET PO SCH (21:31)
[2018-04-24] MEDS: NORTRIPTYLINE HCL 10MG CAPSULE PO SCH (21:32)
[2018-04-25] VITALS: BP 139/43
[2018-04-25] MEDS: MORPHINE SULFATE 4 MG/ML CPJ (NOT FOR IM USE) IV PRN ×3 (02:30→18:26)
[2018-04-25 04:00] VITALS: BP 170/49
[2018-04-25] MEDS: SODIUM CHLORIDE 0.9% INJ 3ML FLUSH IVF SCH ×3 (06:06→21:05)
[2018-04-25] MEDS: HYDRALAZINE 20MG/ML VIAL IV PRN (06:07)
[2018-04-25] MEDS: INSULIN LISPRO 100 UNITS/ML SUBCUT SCH ×5 (06:39→21:04)
[2018-04-25] MEDS: BLOOD SUGAR DIAGNOSTIC STRIP TEST SCH ×4 (06:39→20:56)
[2018-04-25 06:53] LABS: BASOPHILS % 0.7 % (0.0-2.0); EOSINOPHILS % 2.4 % (0.0-5.0); HEMATOCRIT. 32.7 % (36.0-48.0); HEMOGLOBIN. 10.7 g/dL (12.0-16.0); LYMPHOCYTES % 17.7 % (20.0-50.0); MEAN CORPUSCULAR HEMOGLOBIN 30.5 pg (28.0-32.0); MEAN CORPUSCULAR VOLUME 92.9 fL (81.0-99.0); MEAN PLATELET VOLUME 8.7 fl (7.4-10.4); MONOCYTES % 9.3 % (2.0-8.0); NEUTROPHILS % 69.9 % (40.0-76.0); RED BLOOD CELL COUNT 3.52 mill/uL (4.2-5.4); RED CELL DISTRIBUTION WIDTH 19.1 % (11.6-14.6)
[2018-04-25 07:56] LABS: PLATELET 44 x1000/uL (130-400)
[2018-04-25 08:00] VITALS: BP 146/41
[2018-04-25] MEDS: AMLODIPINE 10MG TABLET PO SCH (08:55)
[2018-04-25] MEDS: CARVEDILOL 3.125 MG TABLET PO SCH ×2 (08:55→20:56)
[2018-04-25] MEDS: ANASTROZOLE 1 MG TABLET PO SCH (08:55)
[2018-04-25] MEDS: FISH OIL/OMEGA-3 FATTY ACIDS 1000MG CAPSULE PO SCH (08:55)
[2018-04-25 12:00] VITALS: BP 144/43
[2018-04-25 16:00] VITALS: BP 145/40
[2018-04-25 20:00] VITALS: BP 130/42
[2018-04-25] MEDS: DOXAZOSIN MESYLATE 4MG TABLET PO SCH (20:48)
[2018-04-25] MEDS: NORTRIPTYLINE HCL 10MG CAPSULE PO SCH (20:48)
[2018-04-25] MEDS: ATORVASTATIN CALCIUM 10MG TABLET PO SCH (20:48)
[2018-04-26] VITALS: BP 140/44
[2018-04-26 04:00] VITALS: BP 132/48
[2018-04-26] MEDS: SODIUM CHLORIDE 0.9% INJ 3ML FLUSH IVF SCH ×3 (05:39→21:14)
[2018-04-26] MEDS: BLOOD SUGAR DIAGNOSTIC STRIP TEST SCH ×2 (05:40→12:38)
[2018-04-26] MEDS: INSULIN LISPRO 100 UNITS/ML SUBCUT SCH ×2 (06:36→12:40)
[2018-04-26 07:11] LABS: BASOPHILS % 0.3 % (0.0-2.0); EOSINOPHILS % 3.4 % (0.0-5.0); HEMOGLOBIN. 10.6 g/dL (12.0-16.0); MEAN CORPUSCULAR HEMOGLOBIN 30.9 pg (28.0-32.0); MEAN PLATELET VOLUME 8.9 fl (7.4-10.4); MONOCYTES % 9.7 % (2.0-8.0); NEUTROPHILS % 65.6 % (40.0-76.0); RED BLOOD CELL COUNT 3.44 mill/uL (4.2-5.4); RED CELL DISTRIBUTION WIDTH 19.1 % (11.6-14.6)
[2018-04-26 07:37] LABS: PLATELET 42 x1000/uL (130-400)
[2018-04-26 08:00] VITALS: BP 123/41
[2018-04-26] MEDS: AMLODIPINE 10MG TABLET PO SCH (09:00)
[2018-04-26] MEDS: CARVEDILOL 3.125 MG TABLET PO SCH ×2 (09:00→21:12)
[2018-04-26] MEDS: FISH OIL/OMEGA-3 FATTY ACIDS 1000MG CAPSULE PO SCH (09:32)
[2018-04-26] MEDS: ANASTROZOLE 1 MG TABLET PO SCH (09:32)
[2018-04-26 12:00] VITALS: BP 154/48
[2018-04-26 16:00] VITALS: BP 130/65
[2018-04-26] MEDS: ZINC SULFATE 220 MG ( 50 ) CAPSULE PO SCH (16:03)
[2018-04-26] MEDS: MORPHINE SULFATE 4 MG/ML CPJ (NOT FOR IM USE) IV PRN (16:03)
[2018-04-26 18:00] LABS: CREATINE KINASE 155 IU/L (26-192)
[2018-04-26 20:00] VITALS: BP 153/100
[2018-04-26] MEDS ORDERED: BISACODYL 10MG SUPP PR NR (20:40)
[2018-04-26] MEDS: NORTRIPTYLINE HCL 10MG CAPSULE PO SCH (21:11)
[2018-04-26] MEDS: ASCORBIC ACID 250 MG TABLET PO SCH (21:12)
[2018-04-26] MEDS: ATORVASTATIN CALCIUM 10MG TABLET PO SCH (21:12)
[2018-04-26] MEDS: DOXAZOSIN MESYLATE 4MG TABLET PO SCH (21:13)
[2018-04-27] VITALS: BP 175/49
[2018-04-27] MEDS: HYDRALAZINE 20MG/ML VIAL IV PRN (00:12)
[2018-04-27] MEDS: MORPHINE SULFATE 4 MG/ML CPJ (NOT FOR IM USE) IV PRN (01:43)
[2018-04-27 04:00] VITALS: BP 169/51
[2018-04-27] MEDS: SODIUM CHLORIDE 0.9% INJ 3ML FLUSH IVF SCH ×2 (05:35→16:23)
[2018-04-27] MEDS ORDERED: BISACODYL 10MG SUPP PR NR (05:45)
[2018-04-27 06:37] VITALS: BP 155/47
[2018-04-27 08:30] VITALS: BP 175/52
[2018-04-27] MEDS: ASCORBIC ACID 250 MG TABLET PO SCH (08:50)
[2018-04-27] MEDS: FISH OIL/OMEGA-3 FATTY ACIDS 1000MG CAPSULE PO SCH (08:50)
[2018-04-27] MEDS: ZINC SULFATE 220 MG ( 50 ) CAPSULE PO SCH (08:50)
[2018-04-27] MEDS: CARVEDILOL 3.125 MG TABLET PO SCH (08:50)
[2018-04-27] MEDS: AMLODIPINE 10MG TABLET PO SCH (08:51)
[2018-04-27] MEDS: ANASTROZOLE 1 MG TABLET PO SCH (08:51)
[2018-04-27 12:00] VITALS: BP 106/58
[2018-04-27 14:21] VITALS: BP 106/69
[2018-04-27] MEDS ORDERED: FOLIC ACID/VITAMIN B COMP W-C TABLET PO SCH (15:30)
== END 2018-04-27 17:40 | disposition home health service (06) | DRG 73 ==
LOC: ER 10:29 → 8WST 13:50 → ENRESERV 15:41
PROVIDERS: ADMIT Internal Medicine; ATTEND Internal Medicine
PROC: 5A1D70Z Performance of Urinary Filtration, Intermittent, Less than 6 Hours Per Day (ICD-10-PCS; principal; 2018-04-23)
PROC: 5A1D70Z Performance of Urinary Filtration, Intermittent, Less than 6 Hours Per Day (ICD-10-PCS; 2018-04-26)
DX: E11.42 Type 2 diabetes mellitus with diabetic polyneuropathy (principal); N18.6 End stage renal disease; G93.40 Encephalopathy, unspecified; E46 Unspecified protein-calorie malnutrition; I12.0 Hypertensive chronic kidney disease with stage 5 chronic kidney disease or end stage renal disease; D69.6 Thrombocytopenia, unspecified; E11.22 Type 2 diabetes mellitus with diabetic chronic kidney disease; G31.84 Mild cognitive impairment of uncertain or unknown etiology; C50.919 Malignant neoplasm of unspecified site of unspecified female breast; M48.07 Spinal stenosis, lumbosacral region; L89.150 Pressure ulcer of sacral region, unstageable; S30.820A Blister (nonthermal) of lower back and pelvis, initial encounter; R62.7 Adult failure to thrive; Z99.2 Dependence on renal dialysis; Z92.3 Personal history of irradiation; Z86.19 Personal history of other infectious and parasitic diseases; Z88.0 Allergy status to penicillin; X58.XXXA Exposure to other specified factors, initial encounter; Y93.89 Activity, other specified; Y92.89 Other specified places as the place of occurrence of the external cause; Y99.8 Other external cause status; Z87.891 Personal history of nicotine dependence; Z68.20 Body mass index [BMI] 20.0-20.9, adult
CPT/HCPCS: 36415; 70450; 71045; 72148; 80048; 80053; 82550; 82607; 82962; 83036; 83880; 84443; 84484; 85025; 85610; 93005; 93880; 93970; 97162; 97166; 97530; 97535; 99285; J0360; J1815; J2270; J7030